=== PATIENT | female | born 1980 | race Caucasian/White ===

== ENCOUNTER 2017-09-14 09:51 | Emergency (ER) | payer BC ==
[2017-09-14 10:04] VITALS: BP 158/80
[2017-09-14] MEDS ORDERED: HYDROmorphone 1 MG/ML Syringe IM STA (10:47)
--- NOTE | 2017-09-14 11:02 | EDM.PDOC ---
ED HPI GENERAL MEDICAL PROBLEM - General Chief Complaint: Genitourinary Problem Stated Complaint: KIDNEY PAIN Time Seen by Provider: 09/14/17 10:47 Source of Information: Reports: Patient History Limitations: Reports: No Limitations - History of Present Illness INITIAL COMMENTS - FREE TEXT/NARRATIVE: This is a 37-year-old female. She has a history of medullary sponge kidney and she has had multiple kidney stones as well as multiple ear infections. She is noted over the last 3 days increasing back pain in the kidney level area the left is worse than the right and she noted a low-grade fever of 100.8 this morning. She's had no burning on urination but she does state she has some bladder cramps at times over the last couple of days. He is concerned that she might have another infection or she might have a kidney stone on the left. She had an ultrasound on the that showed the medullary sponge kidney bilaterally but there was no hydronephrosis there was no masses no kidney stones were seen by the ultrasound. She has been taking her hydrocodone at home but it doesn't seem to be helping and so she comes to the ER because of the pain and the low-grade fever this morning. Normally she has to take Keflex for her infections because she resisted due to many things and she also normally gets a Rocephin shot she tells me. Bilateral Flank Pain Score (Numeric/FACES): 8 - Related Data Allergies Allergy/AdvReac Type Severity Reaction Status Date / Time nitrofurantoin Allergy Hives Verified 09/14/17 10:04 [From Macrobid] nitrofurantoin Allergy Hives Verified 09/14/17 10:04 macrocrystalline [From Macrobid] Home Meds: Home Meds Aspirin 81 mg PO DAILY 03/20/16 [History] Metoprolol Succinate [Toprol XL] 50 mg PO DAILY 03/20/16 [History] Sertraline [Zoloft] 100 mg PO DAILY 03/20/16 [History] Acetaminophen/oxyCODONE [Percocet 325-5 MG] 1 each PO Q6H PRN #10 tab 09/14/17 [ Rx] Cephalexin [Keflex] 500 mg PO Q8H #21 cap 09/14/17 [Rx] Hydrocodone/Acetaminophen [Hydrocodon-Acetaminophn 10-325] 1 tab PO ASDIRECTED PRN 09/14/17 [History] busPIRone [Buspar] 15 mg PO DAILY 09/14/17 [History] Past Medical History Cardiovascular History: Reports: Other (See Below) Other Cardiovascular History: Tachycardia, bigeminy Genitourinary History: Reports: Renal Calculus Other Genitourinary History: bilateral medullary spongy kidneys [employer] History: Reports: Psychiatric History: Reports: Depression Endocrine/Metabolic History: Reports: Diabetes, Gestational - Past Surgical History GI Surgical History: Reports: Cholecystectomy Female Surgical History: Reports: Lithotripsy/ESWL, Ureteral Stent Social & Family History - Family History Family Medical History: Noncontributory - Tobacco Use Smoking Status *Q: Current Every Day Smoker Years of Tobacco use: 23 Packs/Tins Daily: 1 - Caffeine Use Caffeine Use: Reports: Soda - Recreational Drug Use Recreational Drug Use: No ED ROS GENERAL - Review of Systems Review Of Systems: See Below Constitutional: Reports: Fever, Malaise. Denies: Chills HEENT: Reports: No Symptoms Respiratory: Reports: No Symptoms Cardiovascular: Reports: No Symptoms Endocrine: Reports: No Symptoms GI/Abdominal: Reports: Abdominal Pain. Denies: Diarrhea, Nausea, Vomiting : Reports: Flank Pain. Denies: Discharge, Dysuria Musculoskeletal: Reports: No Symptoms Skin: Reports: No Symptoms Neurological: Reports: No Symptoms Psychiatric: Reports: No Symptoms Hematologic/Lymphatic: Reports: No Symptoms ED EXAM, RENAL/ - Physical Exam Exam: See Below Exam Limited By: No Limitations General Appearance: Alert, WD/WN, No Apparent Distress Eye Exam: Bilateral Eye: Normal Inspection Ears: Normal External Exam Nose: Normal Inspection Throat/Mouth: Normal Inspection, Normal Lips, Normal Voice, No Airway Compromise Head: Normocephalic Neck: Supple Respiratory/Chest: No Respiratory Distress, Lungs Clear, Normal Breath Sounds Cardiovascular: Regular Rate, Rhythm, No Murmur GI/Abdominal: Soft, Non-Tender, Other (Mild soreness on palpation of the bladder region but no severe pain noted) Back Exam: Normal Inspection, CVA Tenderness (L), CVA Tenderness (R) Extremities: Normal Inspection, Normal Range of Motion Neurological: Alert, Oriented Psychiatric: Normal Affect, Normal Mood Skin Exam: Warm, Dry Course - Vital Signs Last Recorded V/S: Last Vital Signs Temp 98.5 F 09/14/17 09:59 Pulse 117 H 09/14/17 09:59 Resp 18 09/14/17 09:59 BP 158/80 H 09/14/17 09:59 Pulse Ox 99 09/14/17 09:59 - Orders/Labs/Meds Labs: Laboratory Tests 09/14/17 09/14/17 09/14/17 Range/Units 10:00 10:40 10:40 WBC 7.23 (3.98-10.04) K/mm3 RBC 4.87 (3.98-5.22) M/mm3 Hgb 15.3 (11.2-15.7) gm/L Hct 45.1 H (34.1-44.9) % MCV 92.6 (79.4-94.8) fl MCH 31.4 (25.6-32.2) pg MCHC 33.9 (32.2-35.5) g/dl RDW Std Deviation 44.0 (36.4-46.3) fL Plt Count 233 (182-369) K/mm3 MPV 9.5 (9.4-12.3) fl Neut % (Auto) 63.3 (34.0-71.1) % Lymph % (Auto) 31.0 (19.3-51.7) % [place] % (Auto) 4.8 (4.7-12.5) % Eos % (Auto) 0.6 L (0.7-5.8) Baso % (Auto) 0.3 (0.1-1.2) % Neut # (Auto) 4.58 (1.56-6.13) K/mm3 Lymph # (Auto) 2.24 (1.18-3.74) K/mm3 [place] # (Auto) 0.35 (0.24-0.36) K/mm3 Eos # (Auto) 0.04 (0.04-0.36) K/mm3 Baso # (Auto) 0.02 (0.01-0.08) K/mm3 Sodium 139 (136-145) mEq/L Potassium 3.9 (3.5-5.1) mEq/L Chloride 106 (98-107) mEq/L Carbon Dioxide 22 (21-32) mEq/L Anion Gap 14.9 (5-15) BUN 10 (7-18) mg/dL Creatinine 0.7 (0.55-1.02) mg/dL Est Cr Clr Drug Dosing 112.76 mL/min Estimated GFR (MDRD) > 60 (>60) mL/min BUN/Creatinine Ratio 14.3 (14-18) Glucose 164 H (74-106) mg/dL Calcium 8.8 (8.5-10.1) mg/dL Total Bilirubin 0.3 (0.2-1.0) mg/dL AST 11 L (15-37) U/L ALT 21 (14-59) U/L Alkaline Phosphatase 117 H (46-116) U/L Total Protein 7.8 (6.4-8.2) g/dl Albumin 3.7 (3.4-5.0) g/dl Globulin 4.1 gm/dL Albumin/Globulin Ratio 0.9 L (1-2) Urine Color Yellow (Yellow) Urine Appearance Clear (Clear) Urine pH 6.5 (5.0-8.0) Ur Specific [place] 1.020 (1.005-1.030) Urine Protein Negative (Negative) Urine Glucose (UA) Negative (Negative) Urine Ketones Negative (Negative) Urine Occult Blood Trace-intact H (Negative) Urine Nitrite Negative (Negative) Urine Bilirubin Negative (Negative) Urine Urobilinogen 0.2 (0.2-1.0) Ur Leukocyte Esterase 2+ H (Negative) Urine RBC 5-10 H (0-5) /hpf Urine WBC 30-40 H (0-5) /hpf Ur Epithelial Cells 0-5 (0-5) /hpf Urine Bacteria Few (FEW) /hpf Urine Mucus Not seen (FEW) /hpf Meds: Medications Discontinued Medications Generic Name Dose Route Start Last Admin Trade Name Freq PRN Reason Stop Dose Admin Hydromorphone HCl 1 mg 09/14/17 10:47 09/14/17 10:51 Dilaudid IM 09/14/17 10:48 1 mg ONETIME STA Administration - Re-Assessments/Exams Free Text/Narrative Re-Assessment/Exam: 09/14/17 11:38 I spoke to the patient regarding the urinalysis would suggest an early urinary tract infection starting. Since she has medullary sponge kidney and running a low-grade fever with the urine results I am much more apt to treat it. She states normally give her a Rocephin shot and put her on Keflex. We should be able to culture that urine. 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
[2017-09-14] MEDS ORDERED: cefTRIAXone 1 GM, Lidocaine 1% 2.1 ML IM SCH ×2 (11:45)
== END 2017-09-14 12:00 | disposition home or self-care (01) ==
LOC: JD.ED 09:51
DX: N39.0 Urinary tract infection, site not specified (principal); B96.20 Unspecified Escherichia coli [E. coli] as the cause of diseases classified elsewhere; Q61.5 Medullary cystic kidney; F32.9 Major depressive disorder, single episode, unspecified; F17.210 Nicotine dependence, cigarettes, uncomplicated; Z96.0 Presence of urogenital implants; Z79.82 Long term (current) use of aspirin; Z79.899 Other long term (current) drug therapy; Z88.8 Allergy status to other drugs, medicaments and biological substances
CPT/HCPCS: 36415; 80053; 81001; 85025; 87086; 87088; 87186; 96372; 99284; J0696; J1170

== ENCOUNTER 2018-10-27 23:39 | Emergency (ER) | payer BC ==
[2018-10-28 00:11] VITALS: BP 160/73
[2018-10-28] MEDS ORDERED: Lactated Ringers 1,000 ML IV ONE (02:08)
[2018-10-28] MEDS ORDERED: Metoclopramide 10 MG/2 ML SDV IVPUSH STA (02:08)
[2018-10-28] MEDS ORDERED: Ondansetron 4 MG/2 ML SDV IVPUSH ONE (02:08)
[2018-10-28] MEDS ORDERED: cefTRIAXone 1 GM in Sodium Chloride 0.9% 100 ML IV ONE (02:09)
[2018-10-28] MEDS ORDERED: Sodium Chloride 0.9% 1,000 ML IV ONE (02:10)
--- NOTE | 2018-10-28 02:13 | EDM.PDOC ---
ED HPI GENERAL MEDICAL PROBLEM - General Chief Complaint: Fever Stated Complaint: FEVER CONGESTION COUGH Time Seen by Provider: 10/28/18 01:40 Source of Information: Reports: Patient, RN Notes Reviewed History Limitations: Reports: No Limitations - History of Present Illness INITIAL COMMENTS - FREE TEXT/NARRATIVE: The patient states that she developed nausea and vomiting around 15:00 today, along with bilateral flank pain and upper abdominal pain that is associated with vomiting. She has had a subjective fever, although she is found to be afebrile here in the ED tonight. She dates that she is very thirsty. She also reports being constipated. The patient states that she has a history of bilateral medullary sponge kidney, causing chronic bilateral flank pain, although she denies having urinary symptoms. The patient states that she was diagnosed with Influenza A, completing a five- day course of Tamiflu from 09/22/2018 through 09/27/2018. She states that her influenza symptoms have subsequently resolved. The patient's PCP is Kerry Ocampo. The patient is prescribed Suboxone for opioid dependence per Dr. Puneet Lama, in [place]. Abdomen Pain Score (Numeric/FACES): 10 - Related Data Allergies Allergy/AdvReac Type Severity Reaction Status Date / Time nitrofurantoin Allergy Hives Verified 10/28/18 00:11 [From Macrobid] nitrofurantoin Allergy Hives Verified 10/28/18 00:11 macrocrystalline [From Macrobid] Home Meds: Home Meds Aspirin 81 mg PO DAILY 03/20/16 [History] Metoprolol Succinate [Toprol XL] 50 mg PO DAILY 03/20/16 [History] Sertraline [Zoloft] 100 mg PO DAILY 03/20/16 [History] Buprenorphine HCl/Naloxone HCl [Suboxone 4 mg-1 mg Sl Film] 1 tab PO TID [History] Pantoprazole Sodium [Protonix] 40 mg PO DAILY 10/28/18 [History] cephALEXin [Keflex] 1 cap PO Q6H #20 cap 10/28/18 [Rx] Past Medical History Cardiovascular History: Reports: Hypertension Genitourinary History: Reports: Renal Calculus, Other (See Below) (Bilateral medullary sponge kidney) 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: Psychiatric History: Reports: Anxiety, Depression Endocrine/Metabolic History: Reports: Diabetes, Gestational, Obesity/BMI 30+ - Past Surgical History GI Surgical History: Reports: Cholecystectomy Female Surgical History: Reports: Lithotripsy/ESWL, Ureteral Stent Social & Family History - Family History Family Medical History: Noncontributory Cardiac: Reports: Other (See Below) Other Cardiac Family History: cardiomyopathy Neurological: Reports: CVA Endocrine/Metabolic: Reports: Diabetes, type II - Tobacco Use Smoking Status *Q: Current Every Day Smoker Years of Tobacco use: 20 Packs/Tins Daily: 1 - Caffeine Use Caffeine Use: Reports: Soda - Recreational Drug Use Recreational Drug Use: No ED ROS GENERAL - Review of Systems Review Of Systems: ROS reveals no pertinent complaints other than HPI. ED EXAM, GENERAL - Physical Exam Exam: See Below Exam Limited By: No Limitations General Appearance: Alert, WD/WN, Mild Distress (Appears uncomfortable) Eye Exam: Bilateral Eye: EOMI, Normal Inspection Ears: Normal External Exam, Hearing Grossly Normal Nose: Normal Inspection Throat/Mouth: Normal Inspection, Normal Lips, Normal Voice, No Airway Compromise Head: Atraumatic, Normocephalic Neck: Normal Inspection, Full Range of Motion Respiratory/Chest: No Respiratory Distress, Lungs Clear, Normal Breath Sounds, No Accessory Muscle Use Cardiovascular: Normal Peripheral Pulses, Regular Rate, Rhythm, No Gallop, No JVD, No Murmur, No Rub Peripheral Pulses: 4+: Radial (L), Radial (R) GI/Abdominal: Normal Bowel Sounds, Soft, Non-Tender (including the upper abdomen ), No Organomegaly, No Distention, No Abnormal Bruit, No Mass, Other (Obese) (Female) Exam: Deferred Rectal (Female) Exam: Deferred Back Exam: Normal Inspection, Full Range of Motion. No: CVA Tenderness (L), CVA Tenderness (R) Extremities: Normal Inspection, Normal Range of Motion, No Pedal Edema, Normal Capillary Refill Neurological: Alert, Oriented, Normal Cognition, No Motor/Sensory Deficits Psychiatric: Normal Affect Skin Exam: Warm, Dry, Intact, Normal Color, No Rash Course - Vital Signs Last Recorded V/S: Last Vital Signs Temp 36.2 C 10/28/18 00:05 Pulse 96 10/28/18 00:05 Resp 22 H 10/28/18 00:05 BP 160/73 H 10/28/18 00:05 Pulse Ox 98 10/28/18 00:05 Orthostatic Blood Pressure [ 106/65 Standing] Orthostatic Blood Pressure [ 112/63 Sitting] Orthostatic Blood Pressure [ 112/62 Supine] - Orders/Labs/Meds Orders: Active Orders 24 hr Category Date Time Status Orthostatic Vital Signs [RC] STAT Care 10/28/18 02:08 Active Labs: Laboratory Tests 10/28/18 10/28/18 10/28/18 Range/Units 00:48 02:10 02:10 WBC 7.26 (3.98-10.04) K/mm3 RBC 4.86 (3.98-5.22) M/mm3 Hgb 14.9 (11.2-15.7) gm/L Hct 43.8 (34.1-44.9) % MCV 90.1 (79.4-94.8) fl MCH 30.7 (25.6-32.2) pg MCHC 34.0 (32.2-35.5) g/dl RDW Std Deviation 41.1 (36.4-46.3) fL Plt Count 218 (182-369) K/mm3 MPV 9.9 (9.4-12.3) fl Neutrophils % (Manual) 88 H (40-60) % Band Neutrophils % 0 (0-10) % Lymphocytes % (Manual) 10 L (20-40) % Atypical Lymphs % 0 % Monocytes % (Manual) 1 L (2-10) % Eosinophils % (Manual) 1 (0.7-5.8) % Basophils % (Manual) 0 L (0.1-1.2) Platelet Estimate Adequate RBC Morph Comment Normal Sodium 140 (136-145) mEq/L Potassium 4.2 (3.5-5.1) mEq/L Chloride 105 (98-107) mEq/L Carbon Dioxide 23 (21-32) mEq/L Anion Gap 16.2 H (5-15) BUN 13 (7-18) mg/dL Creatinine 0.8 (0.55-1.02) mg/dL Est Cr Clr Drug Dosing 97.69 mL/min Estimated GFR (MDRD) > 60 (>60) mL/min BUN/Creatinine Ratio 16.3 (14-18) Glucose 129 H (74-106) mg/dL Calcium 8.6 (8.5-10.1) mg/dL Magnesium 2.0 (1.8-2.4) mg/dl Total Bilirubin 0.4 (0.2-1.0) mg/dL AST 10 L (15-37) U/L ALT 17 (14-59) U/L Alkaline Phosphatase 130 H (46-116) U/L Total Protein 7.5 (6.4-8.2) g/dl Albumin 3.4 (3.4-5.0) g/dl Globulin 4.1 gm/dL Albumin/Globulin Ratio 0.8 L (1-2) Urine Color Yellow (Yellow) Urine Appearance Clear (Clear) Urine pH 6.0 (5.0-8.0) Ur Specific [place] 1.025 (1.005-1.030) Urine Protein 1+ H (Negative) Urine Glucose (UA) Negative (Negative) Urine Ketones Negative (Negative) Urine Occult Blood Negative (Negative) Urine Nitrite Positive H (Negative) Urine Bilirubin Negative (Negative) Urine Urobilinogen 0.2 (0.2-1.0) Ur Leukocyte Esterase 1+ H (Negative) Urine RBC 0-5 (0-5) /hpf Urine WBC 20-30 H (0-5) /hpf Ur Epithelial Cells 0-5 (0-5) /hpf Urine Bacteria Few (FEW) /hpf Urine Mucus Few (FEW) /hpf Meds: Medications Discontinued Medications Generic Name Dose Route Start Last Admin Trade Name Jose Maria PRN Reason Stop Dose Admin Lactated Ringer's 1,000 mls @ 999 mls/hr 10/28/18 02:08 Ringers, Lactated IV 10/28/18 03:08 .BOLUS ONE Ceftriaxone Sodium 1 gm/ 100 mls @ 200 mls/hr 10/28/18 02:09 10/28/18 02:27 Sodium Chloride IV 10/28/18 02:38 200 mls/hr ONETIME ONE Administration Sodium Chloride 1,000 mls @ 999 mls/hr 10/28/18 02:10 10/28/18 02:22 Normal Saline IV 10/28/18 03:10 999 mls/hr ONETIME ONE Administration Metoclopramide HCl 10 mg 10/28/18 02:08 10/28/18 02:25 Reglan IVPUSH 10/28/18 02:09 10 mg ONETIME STA Administration Ondansetron HCl 4 mg 10/28/18 02:08 10/28/18 02:23 Zofran IVPUSH 10/28/18 02:09 4 mg ONETIME ONE Administration - Re-Assessments/Exams Free Text/Narrative Re-Assessment/Exam: 10/28/18 02:11 The patient's urinalysis is concerning for a UTI. I checked prior urinalyses and found that the patient had similar results on 03/20/2016 and 09/14/2017. In both of those cases, the patient's urine culture grew Escherichia coli, resistant to fluoroquinolones and trimethoprim/sulfamethoxazole, but susceptible to cephalosporins and nitrofurantoin. The patient states that she is allergic to nitrofurantoin, that it causes her to have hives, and that she has been given Keflex in the past. Based on this information, I have ordered a urine culture, and will treat the patient with 1 g of IV Rocephin here in the ED , with the anticipation of discharging her home with a prescription for Keflex. In the meantime, I have ordered some blood tests and orthostatics, and will treat patient with IV fluid, IV Zofran, and IV Reglan. 10/28/18 03:19 Test results discussed with the patient. Other than the abnormal urinalysis, the remainder of the patient's workup tonight was unremarkable. She is not orthostatic. She has received 1 g of Rocephin, and I will discharge her home with a prescription for Keflex. I would like her to follow-up with her PCP, Kerry Ocampo, this coming 10/30/2018, to check on the urine culture results. The patient requested a note for work. Departure - Departure Time of Disposition: 03:20 Disposition: Home, Self-Care 01 Condition: Fair Clinical Impression: UTI (urinary tract infection) Qualifiers: Urinary tract infection type: acute cystitis Hematuria presence: with hematuria Qualified Code(s): N30.01 - Acute cystitis with hematuria - Discharge Information *PRESCRIPTION DRUG MONITORING PROGRAM REVIEWED*: Not Applicable *COPY OF PRESCRIPTION DRUG MONITORING REPORT IN PATIENT LAOTYA: Not Applicable Prescriptions: cephALEXin [Keflex] 1 cap PO Q6H #20 cap Instructions: Urinary Tract Infection, Adult Referrals: Kerry Ocampo, [employer] [Primary Care Provider] - Forms: ED Department Discharge, ED Return to Work/School Form Additional Instructions: You were seen in the emergency room for nausea and vomiting, with flank and upper abdominal pain. Workup in the ER included blood work, a urinalysis, and positional blood pressure checks. Your urinalysis indicates that you have a urinary tract infection. A sample of your urine has been sent for culture. The remainder of your workup was unremarkable. You are not dehydrated. You were given the IV antibiotic Rocephin in the ER, and a prescription for the oral antibiotic Keflex has been sent to the [facility], located at [address] [place] [address]. Take one tablet of Keflex every 6 hours, starting this morning, 10/28/2018, as prescribed. Finish the entire prescription unless told otherwise by your PCP. Stay adequately hydrated. It does not really matter what type of fluid you drink. A note for work has been provided. Follow-up with your PCP, Kerry Ocampo, this coming 10/30/2018, to check on your urine culture results, to make sure that you are on the correct antibiotic. If any other problems, please do not hesitate to return to the ER. - My Orders Last 24 Hours: My Active Orders 10/28/18 02:08 Orthostatic Vital Signs [RC] STAT - Assessment/Plan Last 24 Hours: My Active Orders 10/28/18 02:08 Orthostatic Vital Signs [RC] STAT
== END 2018-10-28 03:40 | disposition home or self-care (01) ==
LOC: JD.ED 23:39
DX: N30.01 Acute cystitis with hematuria (principal); B96.20 Unspecified Escherichia coli [E. coli] as the cause of diseases classified elsewhere; F17.210 Nicotine dependence, cigarettes, uncomplicated; I10 Essential (primary) hypertension; F41.9 Anxiety disorder, unspecified; F32.9 Major depressive disorder, single episode, unspecified; Z88.1 Allergy status to other antibiotic agents; Z79.899 Other long term (current) drug therapy
CPT/HCPCS: 36415; 80053; 81001; 83735; 85007; 85027; 87086; 87088; 87186; 96365; 96375; 99284; J0696; J2405; J2765; J7030; J7040